=== PATIENT | female | born 1980 | race Asian ===

== ENCOUNTER 2020-02-22 01:14 | Emergency (ER) | payer SELFPAY ==
[~2020-02-22] VITALS: Ht 165.1 cm; Wt 51.3 kg
[2020-02-22 01:18] VITALS: BP_SYST 129
[2020-02-22 01:30] VITALS: BP_SYST 129
== END 2020-02-22 01:30 ==
LOC: SED 01:14
DX: F10.129 Alcohol abuse with intoxication, unspecified (principal); V49.69XA Unspecified car occupant injured in collision with other motor vehicles in traffic accident, initial encounter; Y93.89 Activity, other specified; Y92.413 State road as the place of occurrence of the external cause; Y99.8 Other external cause status
CPT/HCPCS: 99283